=== PATIENT | male | born 1980 | race Caucasian/White ===

== ENCOUNTER 2017-08-10 20:56 | Emergency (ER) | payer OTHER ==
[~2017-08-10 20:56] MED LIST: BENT20TA PO; CLON.5 PO; ZOLO100T PO
[2017-08-10 21:48] VITALS: BP 137/95; PULSE 93; RESP 16; TEMP 98.4; O2SAT 99
[2017-08-10] MEDS ORDERED: CLIN300C5 PO (22:33)
[2017-08-10] MEDS ORDERED: SUBO2MIS SL (22:33)
[2017-08-10] MEDS ORDERED: BACT800T5 PO (22:33)
--- NOTE | 2017-08-10 22:37 | PD ---
HPI Chief Complaint: Skin Problem Time Seen by Provider: 22:26 Travel History International Travel<30 days: No Contact w/Intl Traveler<30days: No Traveled to known affect area: No History of Present Illness HPI This is a 37-year-old [id number] male who presents for evaluation of an area of skin redness on the dorsum of the left hand. Symptom onset 2-3 days ago. He reports pain associated with it, aching, constant, worse with palpation. Denies any fevers, chills, drainage, numbness, tingling, weakness. 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 He has no other complaints at this time. [facility] Past Medical History Depression: Yes Past Surgical History Other Surgery: Yes (BILAT INGUINAL HERNIA REPAIR JAN 2011) Social History Alcohol Use: No Tobacco Use: No Substance Use: Yes (Heroin) Allergies-Medications (Allergen,Severity, Reaction): Coded Allergies: No Known Allergies (Unverified Adverse Reaction, Unknown, 08/10/17) Reported Meds & Prescriptions Reported Meds & Active Scripts Active Bactrim DS (Sulfamethoxazole-Trimethoprim) 800-160 Mg Tab 1 Tab PO BID Clindamycin (Clindamycin HCl) 300 Mg Cap 300 Mg PO TID 10 Days Reported Suboxone Sublingual Film (Buprenorphine-Naloxone Sublingual Film) 2-0.5 Mg Film 1 Film SL Unique ID number required: Review of Systems General / Constitutional: No: Fever, Chills Musculoskeletal: Positive: Pain Skin: Positive Other (Positive for pain, redness) Neurologic: No: Paresthesia Physical Exam Narrative GENERAL: Well-developed well-nourished male in no acute distress SKIN: Warm and dry. On the dorsum of the left hand there is an area of erythema and slight induration. Needle track tracy are noted. There is no fluctuance or drainage. HEAD: Atraumatic. Normocephalic. EYES: Pupils equal and round. No scleral icterus. No injection or drainage. ENT: No nasal bleeding or discharge. Mucous membranes pink and moist. NECK: Trachea midline. No JVD. CARDIOVASCULAR: Regular rate and rhythm. No murmur appreciated. RESPIRATORY: No accessory muscle use. Clear to auscultation. Breath sounds equal bilaterally. MUSCULOSKELETAL: Skin as noted above with associated tenderness to palpation of the dorsum of the left hand. The patient maintains full range of motion left wrist, hand, all fingers of left hand. Capillary refill is less than 2 seconds all digits left hand. NEUROLOGICAL: Awake and alert. No obvious cranial nerve deficits. Motor grossly within normal limits. Normal speech. Data Data Last Documented VS Vital Signs Date Time Temp Pulse Resp B/P (MAP) Pulse Ox O2 Delivery O2 Flow Rate FiO2 08/10/17 21:48 98.4 93 16 137/95 (109) 99 Orders Orders Clindamycin Inj (Cleocin Inj) (08/10/17 22:45) Sulfamet-Trimeth Ds 800-160 Mg (Bactrim (08/10/17 22:45) [facility] Medical Decision Making Medical Screen Exam Complete: Yes Emergency Medical Condition: Yes Medical Record Reviewed: Yes Differential Diagnosis Cellulitis, abscess, tenosynovitis, erysipelas, osteomyelitis Narrative Course Physical examination is consistent with cellulitis in the dorsum of the left hand. There is no evidence for abscess or tenosynovitis. Plan is to treat the patient as an outpatient. He will be given a dose of clindamycin and Bactrim here and discharged with prescriptions for the same. Discussed signs and symptoms that would warrant returning to the emergency room. He is stable for discharge. Diagnosis Primary Impression: Cellulitis of left hand Referrals: [facility] Additional Instructions: Medication as prescribed. Warm compresses several times a day 15 minutes at a time. Elevate. Return for any acutely new or worsening symptoms. Med/Other Pt SpecificInfo: Prescription(s) given Scripts Sulfamethoxazole-Trimethoprim (Bactrim DS) 800-160 Mg Tab 1 TAB PO BID for Infection, #20 TAB 0 Refills Prov: Indigo Monet DO 08/10/17 Clindamycin (Clindamycin) 300 Mg Cap 300 MG PO TID for Infection for 10 Days, CAP 0 Refills Prov: Indigo Monet DO 08/10/17 Disposition: 01 DISCHARGE HOME Condition: Stable Sam Donato Aug 10, 2017 22:37
[2017-08-10] MEDS ORDERED: CLINDAMYCIN PHOS 600 MG/4 ML VIAL IM ONE (22:45)
[2017-08-10] MEDS ORDERED: SULFAMETHOXAZOLE-TRIMETHOPRIM DS 800-160 MG TAB PO ONE (22:45)
== END 2017-08-10 22:44 | disposition home or self-care (01) ==
LOC: NEPD 20:56
DX: L03.114 Cellulitis of left upper limb (principal)
CPT/HCPCS: 96372